=== PATIENT | female | born 1955 | race Caucasian/White ===

== ENCOUNTER 2016-11-04 07:58 | Day surgery (SDC) | payer MEDICARE, MEDICAID ==
[~2016-11-04] VITALS: Ht 152.4 cm; Wt 52.6 kg
[2016-11-04] MEDS ORDERED: CLON0.2T PO (09:11)
[2016-11-04] MEDS ORDERED: CELL2 PO (09:11)
[2016-11-04] MEDS ORDERED: INSNOV SUBCUT (09:11)
[2016-11-04] MEDS ORDERED: VALS40TA4 PO (09:11)
[2016-11-04] MEDS ORDERED: CLOP75TA2 PO (09:11)
[2016-11-04] MEDS ORDERED: CALC-1232 PO (09:11)
[2016-11-04] MEDS ORDERED: FAMO40TA35 PO (09:11)
[2016-11-04] MEDS ORDERED: INSU100I22 SQ (09:11)
[2016-11-04] MEDS ORDERED: NITR0.4T SL (09:11)
[2016-11-04] MEDS ORDERED: PRED5TAB48 PO (09:11)
[2016-11-04] MEDS ORDERED: PROG1 PO (09:11)
[2016-11-04] MEDS ORDERED: SIMV40TA5 PO (09:11)
[2016-11-04] MEDS ORDERED: ACETAMINOPHEN 325MG TABLET PO NR (16:30)
[2016-11-04] MEDS ORDERED: HYDROCODONE/ACETAMINOPHEN 5/325MG TABLET PO PRN (16:30)
== END 2016-11-04 18:02 | disposition home or self-care (01) ==
LOC: CCL 07:58
PROVIDERS: ATTEND Specialist
DX: I70.239 Atherosclerosis of native arteries of right leg with ulceration of unspecified site (principal); I11.9 Hypertensive heart disease without heart failure; E78.5 Hyperlipidemia, unspecified; E11.39 Type 2 diabetes mellitus with other diabetic ophthalmic complication; H40.9 Unspecified glaucoma; Z90.49 Acquired absence of other specified parts of digestive tract; Z90.710 Acquired absence of both cervix and uterus; Z79.4 Long term (current) use of insulin; Z88.8 Allergy status to other drugs, medicaments and biological substances; Z94.0 Kidney transplant status
CPT/HCPCS: 36246; 75716; 82962; 99152; 99153; C1760; C1769; C1893

== ENCOUNTER → 2018-07-14 | Outpatient (CLI) | payer MEDICARE, MEDICAID ==
[~2018-07-14] MED LIST: ACET-2178 PO; ASPI-1159 PO; CALC-1232 PO; CELL2 PO; CLON0.2T PO; CLOP75TA16 PO; FAMO40TA70 PO; INSNOV SUBCUT; INSU100I22 SQ; NITR0.4T SL; ONDA4TAB5 PO; PRED5TAB48 PO; PROG1 PO; PROT20 PO; SIMV40TA5 PO; VALS40TA4 PO
== END | disposition home or self-care (01) ==
LOC: RAD 12:37
DX: Z01.818 Encounter for other preprocedural examination (principal); I10 Essential (primary) hypertension; Z94.0 Kidney transplant status
CPT/HCPCS: 71045

== ENCOUNTER → 2019-09-29 | Outpatient (CLI) | payer MEDICARE, MEDICAID ==
[~2019-09-29] MED LIST changes: -ACET-2178 PO; -ASPI-1159 PO; +ASPI-1497 PO; +BRIN8DRO BOTHEYE; +CALC-25 PO; +CHOL500063 PO; -CLOP75TA16 PO; +CLOP75TA4 PO; +DOCU-150 PO; +GABA-533 PO; +HYDR10TA34 PO; +INSU100I33 SQ; +INSU100V36 SQ; +LOSA25TA26 PO; +METH50TA5 PO; +PANT40TA4 PO; +PRAV40TA58 PO; +PRED5DRO22 BOTHEYE; +PRED5TAB PO; +RISP05 PO; +SERT50TA12 PO; +SIMV-46 PO; -SIMV40TA5 PO; +SITA50TA3 PO; +TACR0.5C4 PO; +TOBRDO OP; +TOPUD PO; +TRAV2.5D OP
== END | disposition home or self-care (01) ==
LOC: LAB 12:45
PROVIDERS: ATTEND Ophthalmology
DX: Z01.818 Encounter for other preprocedural examination (principal); Z11.59 Encounter for screening for other viral diseases
CPT/HCPCS: C9803; U0003

== ENCOUNTER 2019-10-03 06:21 | Day surgery (SDC) | payer MEDICARE, MEDICAID ==
[~2019-10-03] VITALS: Ht 152.4 cm; Wt 54.4 kg
[~2019-10-03 06:21] MED LIST changes: -ASPI-1497 PO; -CALC-1232 PO; -CELL2 PO; -CLON0.2T PO; -FAMO40TA70 PO; -INSNOV SUBCUT; -INSU100I22 SQ; -NITR0.4T SL; -ONDA4TAB5 PO; -PRED5TAB48 PO; -PROG1 PO; -PROT20 PO; -SIMV-46 PO; -TOPUD PO; -VALS40TA4 PO
[2019-10-03] MEDS ORDERED: SODIUM CHLORIDE 0.9% 1,000 ML IV SCH (06:30)
[2019-10-03] MEDS ORDERED: PROPOFOL 200MG/20ML VIAL IV ONE (08:30)
[2019-10-03] MEDS ORDERED: MIDAZOLAM HCL 2 MG/2 ML VIAL ONE (08:30)
[2019-10-03] MEDS ORDERED: FENTANYL CITRATE/PF 50MCG/ML 2ML VIAL ONE (08:30)
[2019-10-03] MEDS ORDERED: LIDOCAINE HCL/PF 1% 10 MG/ML 5ML VIAL ONE (08:32)
[2019-10-03] MEDS ORDERED: HYALURONATE SODIUM 10 MG/ML 0.55ML SYRINGE IO ONE (09:10)
[2019-10-03] MEDS ORDERED: BALANCED SALT IRRIG SOLN COMB1 500ML OP NR (09:30)
[2019-10-03] MEDS ORDERED: LIDOCAINE HCL 2%/EPINEPHRINE 1:100,000 20 ML VIAL INFIL ONE (14:07)
[2019-10-03] MEDS ORDERED: BALANCED SALT IRRIG SOLN 15ML ONE (14:07)
[2019-10-03] MEDS ORDERED: CIPROFLOXACIN 0.3% OPHTH SOLN 2.5ML ONE (14:07)
[2019-10-03] MEDS ORDERED: BUPIVACAINE HCL/PF 0.75% (7.5MG/ML) 10ML ONE (14:07)
[2019-10-03] MEDS ORDERED: TETRACAINE 0.5% OPHTH DROPS 4ML ONE (14:07)
[2019-10-03] MEDS ORDERED: LIDOCAINE HCL/PF 2% 20 MG/ML 10ML VIAL ONE (14:07)
[2019-10-03] MEDS ORDERED: PREDNISOLONE ACETATE 1% OPHTH DROPS 5ML ONE (14:07)
== END 2019-10-03 11:10 | disposition home or self-care (01) ==
LOC: OR 06:21
PROVIDERS: ATTEND Ophthalmology
DX: T85.398A Other mechanical complication of other ocular prosthetic devices, implants and grafts, initial encounter (principal); E11.39 Type 2 diabetes mellitus with other diabetic ophthalmic complication; H40.89 Other specified glaucoma; E11.65 Type 2 diabetes mellitus with hyperglycemia; I10 Essential (primary) hypertension; E78.00 Pure hypercholesterolemia, unspecified; Z94.0 Kidney transplant status; Z79.84 Long term (current) use of oral hypoglycemic drugs; Z79.899 Other long term (current) drug therapy; Z98.890 Other specified postprocedural states; Z79.4 Long term (current) use of insulin; Z83.3 Family history of diabetes mellitus; Z82.49 Family history of ischemic heart disease and other diseases of the circulatory system
CPT/HCPCS: 66185; 82962; J2250; J2704; J3010; J3490

== ENCOUNTER 2020-12-30 11:36 | Inpatient (IN) | payer MEDICARE, MEDICAID ==
[~2020-12-30] VITALS: Ht 152.4 cm; Wt 55.8 kg
[~2020-12-30 11:36] MED LIST changes: -CALC-25 PO; +CALC-26 PO; +CLOP-31 PO; -CLOP75TA4 PO; -PANT40TA4 PO; +PANT40TA51 PO; +SERT-422 PO; -SERT50TA12 PO; -TRAV2.5D OP; +TRAV2.5D9 OP
[2020-12-30] MEDS ORDERED: PIPERACILLIN/TAZ 3.375G PREMIX 50 ML IV ONE (14:00)
[2020-12-30] MEDS ORDERED: VANCOMYCIN 1 G PREMIX 200 ML IV ONE (14:00)
[2020-12-30 14:41] LABS: BASOPHILS % 0.7 % (0.0-2.0); EOSINOPHILS % 0.6 % (0.0-5.0); HEMATOCRIT. 36.4 % (36.0-48.0); HEMOGLOBIN. 11.4 g/dL (12.0-16.0); LYMPHOCYTES % 10.4 % (20.0-50.0); MEAN CORPUSCULAR HEMOGLOBIN 26.4 pg (28.0-32.0); MEAN CORPUSCULAR VOLUME 84.2 fL (81.0-99.0); MONOCYTES % 7.4 % (2.0-8.0); NEUTROPHILS % 80.9 % (40.0-76.0); PLATELET 319 x1000/uL (130-400); RED BLOOD CELL COUNT 4.32 mill/uL (4.2-5.4); RED CELL DISTRIBUTION WIDTH 16.5 % (11.6-14.6)
[2020-12-30 14:47] LABS: CHLORIDE 99 mEq/L (98-107)
[2020-12-30 14:53] LABS: INR 1.1; PROTHROMBIN TIME 11.6 sec (9.6-11.0)
[2020-12-30] MEDS ORDERED: DOCUSATE SODIUM 100MG CAPSULE PO PRN (18:45)
[2020-12-30] MEDS ORDERED: ONDANSETRON HCL 4MG/2ML INJ IV PRN (18:45)
[2020-12-30] MEDS ORDERED: VANCOMYCIN 1 G PREMIX 200 ML IV SCH (18:45)
[2020-12-30] MEDS ORDERED: DEXTROSE 50% WATER 50ML SYRINGE IV PRN (18:45)
[2020-12-30] MEDS ORDERED: HYDROCODONE/ACETAMINOPHEN 10/325MG TABLET PO PRN (18:45)
[2020-12-30] MEDS ORDERED: ZOLPIDEM TARTRATE 5MG TABLET PO PRN (18:45)
[2020-12-30] MEDS ORDERED: VANCOMYCIN 500 MG PREMIX 100 ML IV NR (20:00)
[2020-12-30] MEDS: BLOOD SUGAR DIAGNOSTIC STRIP TEST SCH (21:00)
[2020-12-30] MEDS: TACROLIMUS 0.5 MG CAPSULE PO SCH (21:38)
[2020-12-30] MEDS: MYCOPHENOLATE MOFETIL 250MG CAPSULE PO SCH (21:39)
[2020-12-30] MEDS ORDERED: INSULIN GLARGINE UD 100 UNITS/ML SYR SUBCUT SCH (22:00)
[2020-12-30] MEDS: FAMOTIDINE 20MG TABLET PO SCH (22:20)
[2020-12-30] MEDS: INSULIN LISPRO 100 UNITS/ML SUBCUT SCH (22:30)
[2020-12-30] MEDS: SODIUM CHLORIDE 0.9% INJ 3ML FLUSH IVF SCH (22:32)
[2020-12-31] VITALS: BP 155/54
[2020-12-31] MEDS: ATORVASTATIN CALCIUM 20MG TABLET PO SCH ×2 (00:35→20:46)
[2020-12-31 04:00] VITALS: BP 151/70
[2020-12-31] MEDS: BLOOD SUGAR DIAGNOSTIC STRIP TEST SCH ×4 (06:40→20:47)
[2020-12-31] MEDS: INSULIN LISPRO 100 UNITS/ML SUBCUT SCH ×4 (06:41→20:47)
[2020-12-31] MEDS: PREDNISONE 5MG TABLET PO SCH (06:41)
[2020-12-31] MEDS: SODIUM CHLORIDE 0.9% INJ 3ML FLUSH IVF SCH ×3 (06:42→22:57)
[2020-12-31 08:00] VITALS: BP 144/57
[2020-12-31] MEDS ORDERED: PNEUMOCOCCAL 23-VAL P-SAC VAC 0.5 ML IM ONE (08:00)
[2020-12-31] MEDS: MYCOPHENOLATE MOFETIL 250MG CAPSULE PO SCH ×2 (09:54→20:46)
[2020-12-31] MEDS: TACROLIMUS 0.5 MG CAPSULE PO SCH ×2 (09:54→17:08)
[2020-12-31] MEDS: LOSARTAN POTASSIUM 25 MG TABLET PO SCH (09:54)
[2020-12-31] MEDS: VANCOMYCIN 750 MG PREMIX 150 ML IV SCH ×2 (09:55→20:46)
[2020-12-31] MEDS ORDERED: INFLUENZA VACCINE 05/PF 0.5 ML SYRINGE IM ONE (10:00)
[2020-12-31 12:00] VITALS: BP 134/50
[2020-12-31 16:00] VITALS: BP 150/54
[2020-12-31] MEDS ORDERED: LIDOCAINE HCL 1% 20ML VIAL (Pyxis) INJ ONE (16:36)
[2020-12-31] MEDS ORDERED: BUPIVACAINE HCL/PF 0.5% (5MG/ML) 10ML ONE (16:36)
[2020-12-31] MEDS ORDERED: POLYMYXIN B SULFATE 500000 UNITS/VIAL ONE (16:36)
[2020-12-31 20:00] VITALS: BP 147/61
[2020-12-31] MEDS: FAMOTIDINE 20MG TABLET PO SCH (20:46)
[2020-12-31] MEDS: HYDROMORPHONE HCL/PF 2MG/ML CPJ IV PRN (22:03)
[2020-12-31] MEDS: INSULIN GLARGINE UD 100 UNITS/ML SYR SUBCUT SCH (22:57)
[2021-01-01] VITALS (9 sets, daily range): BP systolic 78–146; BP diastolic 32–72
[2021-01-01] MEDS: HYDROMORPHONE HCL/PF 2MG/ML CPJ IV PRN ×2 (04:35→17:23)
[2021-01-01] MEDS: SODIUM CHLORIDE 0.9% INJ 3ML FLUSH IVF SCH ×3 (06:00→21:27)
[2021-01-01] MEDS: INSULIN LISPRO 100 UNITS/ML SUBCUT SCH ×4 (06:52→21:28)
[2021-01-01] MEDS: PREDNISONE 5MG TABLET PO SCH (06:52)
[2021-01-01] MEDS: BLOOD SUGAR DIAGNOSTIC STRIP TEST SCH ×4 (07:37→20:22)
[2021-01-01] MEDS: LOSARTAN POTASSIUM 25 MG TABLET PO SCH (09:00)
[2021-01-01] MEDS: MYCOPHENOLATE MOFETIL 250MG CAPSULE PO SCH ×2 (09:25→21:26)
[2021-01-01] MEDS: TACROLIMUS 0.5 MG CAPSULE PO SCH ×2 (09:25→17:21)
[2021-01-01] MEDS: SODIUM CHLORIDE 0.45% 1,000 ML IV SCH ×2 (09:26→21:27)
[2021-01-01] MEDS ORDERED: HEPARIN 1000 UNITS/ML 10ML ONE (09:35)
[2021-01-01] MEDS ORDERED: LIDOCAINE HCL 1% 20ML VIAL (Pyxis) INJ ONE (09:35)
[2021-01-01] MEDS ORDERED: IOHEXOL-300 100 ML BOTTLE ONE (09:36)
[2021-01-01] MEDS ORDERED: IODIXANOL 320MG/ML 100 ML BOTTLE IV ONE (09:36)
[2021-01-01] MEDS ORDERED: MIDAZOLAM HCL 2 MG/2 ML VIAL ONE (10:17)
[2021-01-01] MEDS ORDERED: FENTANYL CITRATE/PF 50MCG/ML 2ML VIAL ONE (10:17)
[2021-01-01] MEDS ORDERED: ONDANSETRON HCL 4MG/2ML INJ IV PRN (11:15)
[2021-01-01] MEDS ORDERED: ATROPINE SULFATE 1MG/10ML SYR IV PRN (11:15)
[2021-01-01] MEDS ORDERED: FENTANYL CITRATE/PF 50MCG/ML 5ML VIAL ONE (11:20)
[2021-01-01] MEDS ORDERED: MIDAZOLAM HCL 5 MG/5 ML VIAL ONE (11:21)
[2021-01-01] MEDS: ATORVASTATIN CALCIUM 20MG TABLET PO SCH (21:26)
[2021-01-01] MEDS: FAMOTIDINE 20MG TABLET PO SCH (21:27)
[2021-01-01] MEDS: VANCOMYCIN 750 MG PREMIX 150 ML IV SCH (21:27)
[2021-01-01] MEDS: INSULIN GLARGINE UD 100 UNITS/ML SYR SUBCUT SCH (21:29)
[2021-01-02] VITALS: BP 115/57
[2021-01-02] MEDS: HYDROMORPHONE HCL/PF 2MG/ML CPJ IV PRN ×2 (01:14→08:36)
[2021-01-02 04:00] VITALS: BP 136/60
[2021-01-02] MEDS: BLOOD SUGAR DIAGNOSTIC STRIP TEST SCH ×4 (06:09→20:20)
[2021-01-02] MEDS: INSULIN LISPRO 100 UNITS/ML SUBCUT SCH ×4 (06:10→21:04)
[2021-01-02] MEDS: PREDNISONE 5MG TABLET PO SCH (06:21)
[2021-01-02] MEDS: SODIUM CHLORIDE 0.9% INJ 3ML FLUSH IVF SCH ×3 (06:22→21:04)
[2021-01-02 07:21] LABS: BASOPHILS % 0.9 % (0.0-2.0); EOSINOPHILS % 1.7 % (0.0-5.0); HEMATOCRIT. 39.8 % (36.0-48.0); MEAN CORPUSCULAR HEMOGLOBIN 26.5 pg (28.0-32.0); MEAN CORPUSCULAR VOLUME 87.6 fL (81.0-99.0); MEAN PLATELET VOLUME 9.7 fl (7.4-10.4); MONOCYTES % 9.3 % (2.0-8.0); NEUTROPHILS % 70.1 % (40.0-76.0); PLATELET 163 x1000/uL (130-400); RED BLOOD CELL COUNT 4.54 mill/uL (4.2-5.4); RED CELL DISTRIBUTION WIDTH 16.9 % (11.6-14.6)
[2021-01-02 08:09] VITALS: BP 133/56
[2021-01-02] MEDS: TACROLIMUS 0.5 MG CAPSULE PO SCH ×2 (08:24→17:00)
[2021-01-02] MEDS: LOSARTAN POTASSIUM 25 MG TABLET PO SCH (08:24)
[2021-01-02] MEDS: MYCOPHENOLATE MOFETIL 250MG CAPSULE PO SCH ×2 (08:24→21:02)
[2021-01-02 08:30] LABS: CHLORIDE 98 mEq/L (98-107)
[2021-01-02 12:00] VITALS: BP 113/70
[2021-01-02] MEDS: SODIUM CHLORIDE 0.45% 1,000 ML IV SCH (13:12)
[2021-01-02] MEDS ORDERED: BUPIVACAINE HCL/PF 0.5% (5MG/ML) 10ML ONE (14:30)
[2021-01-02] MEDS ORDERED: POLYMYXIN B SULFATE 500000 UNITS/VIAL ONE ×2 (14:30→16:34)
[2021-01-02] MEDS ORDERED: LIDOCAINE HCL 1% 20ML VIAL (Pyxis) INJ ONE (14:30)
[2021-01-02] MEDS ORDERED: VANCOMYCIN HCL 1 GM/VIAL ONE (14:30)
[2021-01-02] MEDS ORDERED: FENTANYL CITRATE/PF 50MCG/ML 2ML VIAL ONE (16:04)
[2021-01-02] MEDS ORDERED: MIDAZOLAM HCL 2 MG/2 ML VIAL ONE (16:04)
[2021-01-02] MEDS ORDERED: PROPOFOL 200MG/20ML VIAL IV ONE (16:04)
[2021-01-02] MEDS ORDERED: ONDANSETRON HCL 4MG/2ML INJ IV PRN (16:15)
[2021-01-02] MEDS ORDERED: HYDROMORPHONE HCL/PF 2MG/ML CPJ IV PRN (16:15)
[2021-01-02] MEDS ORDERED: LABETALOL 5MG/ML SYR 20 MG/4 ML SYRINGE IV PRN (16:15)
[2021-01-02] MEDS ORDERED: MEPERIDINE HCL/PF 25MG/ML CPJ IV PRN (16:15)
[2021-01-02] MEDS ORDERED: GENTAMICIN SULF 40MG/ML 2ML VIAL ONE (16:34)
[2021-01-02] MEDS ORDERED: BACITRACIN 15GM TUBE TOP ONE (16:34)
[2021-01-02] MEDS ORDERED: ONDANSETRON HCL 4MG/2ML INJ ONE (16:50)
[2021-01-02] MEDS ORDERED: DEXAMETHASONE 4MG/ML 1ML VIAL ONE (16:50)
[2021-01-02 20:00] VITALS: BP 119/83
[2021-01-02] MEDS: VANCOMYCIN 750 MG PREMIX 150 ML IV SCH (21:01)
[2021-01-02] MEDS: FAMOTIDINE 20MG TABLET PO SCH (21:02)
[2021-01-02] MEDS: ATORVASTATIN CALCIUM 20MG TABLET PO SCH (21:02)
[2021-01-02] MEDS: INSULIN GLARGINE UD 100 UNITS/ML SYR SUBCUT SCH (21:41)
[2021-01-03] VITALS: BP 176/76
[2021-01-03] MEDS: CLONIDINE 0.1MG TABLET PO PRN (00:11)
[2021-01-03] MEDS: HYDROMORPHONE HCL/PF 2MG/ML CPJ IV PRN ×2 (00:12→08:38)
[2021-01-03] MEDS: SODIUM CHLORIDE 0.45% 1,000 ML IV SCH ×2 (00:20→14:48)
[2021-01-03 04:00] VITALS: BP 146/60
[2021-01-03] MEDS: SODIUM CHLORIDE 0.9% INJ 3ML FLUSH IVF SCH ×3 (05:29→21:38)
[2021-01-03] MEDS: BLOOD SUGAR DIAGNOSTIC STRIP TEST SCH ×4 (05:55→20:03)
[2021-01-03] MEDS: PREDNISONE 5MG TABLET PO SCH (06:25)
[2021-01-03] MEDS: INSULIN LISPRO 100 UNITS/ML SUBCUT SCH ×4 (06:26→20:55)
[2021-01-03 07:11] LABS: BASOPHILS % 0.4 % (0.0-2.0); EOSINOPHILS % 1.8 % (0.0-5.0); HEMATOCRIT. 32.3 % (36.0-48.0); HEMOGLOBIN. 10.5 g/dL (12.0-16.0); LYMPHOCYTES % 14.4 % (20.0-50.0); MEAN CORPUSCULAR HEMOGLOBIN 26.7 pg (28.0-32.0); MEAN CORPUSCULAR VOLUME 82.2 fL (81.0-99.0); MEAN PLATELET VOLUME 8.6 fl (7.4-10.4); MONOCYTES % 8.9 % (2.0-8.0); NEUTROPHILS % 74.5 % (40.0-76.0); PLATELET 287 x1000/uL (130-400); RED BLOOD CELL COUNT 3.93 mill/uL (4.2-5.4); RED CELL DISTRIBUTION WIDTH 16.1 % (11.6-14.6)
[2021-01-03 07:22] LABS: CHLORIDE 101 mEq/L (98-107)
[2021-01-03 08:00] VITALS: BP_SYST 128; BP_SYST 161; BP_DIAS 54; BP_DIAS 93
[2021-01-03] MEDS: MYCOPHENOLATE MOFETIL 250MG CAPSULE PO SCH ×2 (08:25→20:53)
[2021-01-03] MEDS: LOSARTAN POTASSIUM 25 MG TABLET PO SCH (08:25)
[2021-01-03] MEDS: TACROLIMUS 0.5 MG CAPSULE PO SCH ×2 (08:25→18:21)
[2021-01-03] MEDS: ACETAMINOPHEN 325MG TABLET PO PRN ×2 (11:40→18:41)
[2021-01-03 12:00] VITALS: BP 156/72
[2021-01-03 16:00] VITALS: BP 140/71
[2021-01-03] MEDS ORDERED: CEFTRIAXONE 1 G PREMIX 50 ML IV SCH (19:15)
[2021-01-03 20:00] VITALS: BP 148/56
[2021-01-03] MEDS: CEFTRIAXONE 1,000 MG in DEXTROSE 5% WATER 50 ML IV SCH (20:53)
[2021-01-03] MEDS: ATORVASTATIN CALCIUM 20MG TABLET PO SCH (20:53)
[2021-01-03] MEDS: FAMOTIDINE 20MG TABLET PO SCH (20:53)
[2021-01-03] MEDS: INSULIN GLARGINE UD 100 UNITS/ML SYR SUBCUT SCH (21:45)
[2021-01-04] VITALS: BP 190/66
[2021-01-04] MEDS: CLONIDINE 0.1MG TABLET PO PRN (00:20)
[2021-01-04 04:00] VITALS: BP 149/64
[2021-01-04] MEDS: SODIUM CHLORIDE 0.9% INJ 3ML FLUSH IVF SCH ×3 (05:54→23:29)
[2021-01-04] MEDS: BLOOD SUGAR DIAGNOSTIC STRIP TEST SCH ×4 (06:03→21:07)
[2021-01-04] MEDS: INSULIN LISPRO 100 UNITS/ML SUBCUT SCH ×4 (06:21→21:34)
[2021-01-04 06:26] LABS: CHLORIDE 104 mEq/L (98-107)
[2021-01-04 06:28] LABS: BASOPHILS % 0.3 % (0.0-2.0); HEMATOCRIT. 33.1 % (36.0-48.0); HEMOGLOBIN. 10.8 g/dL (12.0-16.0); LYMPHOCYTES % 11.4 % (20.0-50.0); MEAN CORPUSCULAR HEMOGLOBIN 26.7 pg (28.0-32.0); MEAN CORPUSCULAR VOLUME 81.6 fL (81.0-99.0); MEAN PLATELET VOLUME 8.8 fl (7.4-10.4); MONOCYTES % 6.7 % (2.0-8.0); NEUTROPHILS % 80.6 % (40.0-76.0); PLATELET 303 x1000/uL (130-400); RED BLOOD CELL COUNT 4.05 mill/uL (4.2-5.4); RED CELL DISTRIBUTION WIDTH 16.4 % (11.6-14.6)
[2021-01-04] MEDS: PREDNISONE 5MG TABLET PO SCH (06:45)
[2021-01-04 08:00] VITALS: BP 155/54
[2021-01-04] MEDS: TACROLIMUS 0.5 MG CAPSULE PO SCH ×2 (08:50→17:42)
[2021-01-04] MEDS: MYCOPHENOLATE MOFETIL 250MG CAPSULE PO SCH ×2 (08:50→21:31)
[2021-01-04] MEDS: LOSARTAN POTASSIUM 25 MG TABLET PO SCH ×3 (08:50→21:00)
[2021-01-04 12:00] VITALS: BP 166/50
[2021-01-04] MEDS ORDERED: MAGNESIUM HYDROXIDE 400MG/5ML 30ML UDC PO NR (14:30)
[2021-01-04 16:00] VITALS: BP 146/54
[2021-01-04] MEDS: MAGNESIUM/ALUMINUM HYDROXIDE/SIMETHICONE 30ML UDC PO PRN ×2 (16:08→16:09)
[2021-01-04] MEDS: AMLODIPINE 2.5MG TABLET PO SCH (16:09)
[2021-01-04] MEDS: HYDROMORPHONE HCL/PF 2MG/ML CPJ IV PRN ×2 (19:06→23:29)
[2021-01-04 20:00] VITALS: BP 121/42
[2021-01-04] MEDS: FAMOTIDINE 20MG TABLET PO SCH (21:31)
[2021-01-04] MEDS: CEFTRIAXONE 1,000 MG in DEXTROSE 5% WATER 50 ML IV SCH (21:32)
[2021-01-04] MEDS: ATORVASTATIN CALCIUM 20MG TABLET PO SCH (21:32)
[2021-01-04] MEDS: METRONIDAZOLE 500MG TABLET PO SCH (21:32)
[2021-01-04] MEDS: INSULIN GLARGINE UD 100 UNITS/ML SYR SUBCUT SCH (21:35)
[2021-01-05 01:06] VITALS: BP 104/39
[2021-01-05] MEDS: ACETAMINOPHEN 325MG TABLET PO PRN (02:45)
[2021-01-05 04:00] VITALS: BP 94/50
[2021-01-05] MEDS: BLOOD SUGAR DIAGNOSTIC STRIP TEST SCH ×3 (06:18→16:40)
[2021-01-05] MEDS: PREDNISONE 5MG TABLET PO SCH (06:18)
[2021-01-05] MEDS: SODIUM CHLORIDE 0.9% INJ 3ML FLUSH IVF SCH ×2 (06:18→13:06)
[2021-01-05] MEDS: INSULIN LISPRO 100 UNITS/ML SUBCUT SCH ×2 (07:10→12:02)
[2021-01-05 07:57] LABS: BASOPHILS % 0.4 % (0.0-2.0); EOSINOPHILS % 1.4 % (0.0-5.0); HEMATOCRIT. 31.7 % (36.0-48.0); HEMOGLOBIN. 10.2 g/dL (12.0-16.0); LYMPHOCYTES % 15.4 % (20.0-50.0); MEAN CORPUSCULAR HEMOGLOBIN 26.4 pg (28.0-32.0); MEAN CORPUSCULAR VOLUME 82.3 fL (81.0-99.0); MEAN PLATELET VOLUME 8.5 fl (7.4-10.4); MONOCYTES % 8.1 % (2.0-8.0); NEUTROPHILS % 74.7 % (40.0-76.0); PLATELET 292 x1000/uL (130-400); RED BLOOD CELL COUNT 3.85 mill/uL (4.2-5.4); RED CELL DISTRIBUTION WIDTH 16.4 % (11.6-14.6)
[2021-01-05 08:00] VITALS: BP 101/41
[2021-01-05 08:00] LABS: CHLORIDE 99 mEq/L (98-107)
[2021-01-05] MEDS: AMLODIPINE 2.5MG TABLET PO SCH (08:24)
[2021-01-05] MEDS: LOSARTAN POTASSIUM 25 MG TABLET PO SCH (08:24)
[2021-01-05] MEDS: TACROLIMUS 0.5 MG CAPSULE PO SCH (08:38)
[2021-01-05] MEDS: MYCOPHENOLATE MOFETIL 250MG CAPSULE PO SCH (08:38)
[2021-01-05] MEDS: METRONIDAZOLE 500MG TABLET PO SCH (08:38)
[2021-01-05] MEDS: MAGNESIUM/ALUMINUM HYDROXIDE/SIMETHICONE 30ML UDC PO PRN (11:48)
[2021-01-05] MEDS: HYDROMORPHONE HCL/PF 2MG/ML CPJ IV PRN (11:48)
[2021-01-05 12:00] VITALS: BP 136/56
[2021-01-05] MEDS ORDERED: CEFTRIAXONE 1 G PREMIX 50 ML IV ONE (14:15)
[2021-01-05] MEDS: CEFTRIAXONE 1,000 MG in DEXTROSE 5% WATER 50 ML IV SCH (14:25)
[2021-01-05] MEDS ORDERED: CEFTRIAXONE 1,000 MG in DEXTROSE 5% WATER 50 ML IV SCH (14:45)
[2021-01-05 15:15] VITALS: BP 136/56
[2021-01-05 16:00] VITALS: BP 146/48
== END 2021-01-05 16:37 | disposition home health service (06) | DRG 579 ==
LOC: ER 11:36 → 7EST 16:44 → EDBEDREQSVC 16:47 → CANRESERV 19:13 → ENRESERV 19:13 → EDBEDREQSVC 19:46 → EDBEDREQTM 19:46 → ENRESERV 21:59
PROVIDERS: ADMIT Internal Medicine; ATTEND Internal Medicine
PROC: B41GYZZ Fluoroscopy of Left Lower Extremity Arteries using Other Contrast (ICD-10-PCS; principal; 2021-01-01)
PROC: 0Y6S0Z0 Detachment at Left 2nd Toe, Complete, Open Approach (ICD-10-PCS; 2021-01-02)
PROC: 0HDNXZZ Extraction of Left Foot Skin, External Approach (ICD-10-PCS; 2021-01-02)
PROC: 0M9 Bursae and Ligaments, Drainage (ICD-10-PCS; 2021-01-02)
PROC: 02HV33Z Insertion of Infusion Device into Superior Vena Cava, Percutaneous Approach (ICD-10-PCS; 2021-01-04)
PROC: B548ZZA Ultrasonography of Superior Vena Cava, Guidance (ICD-10-PCS; 2021-01-04)
DX: L02.612 Cutaneous abscess of left foot (principal); N18.6 End stage renal disease; E11.52 Type 2 diabetes mellitus with diabetic peripheral angiopathy with gangrene; I70.262 Atherosclerosis of native arteries of extremities with gangrene, left leg; D84.9 Immunodeficiency, unspecified; I12.0 Hypertensive chronic kidney disease with stage 5 chronic kidney disease or end stage renal disease; D63.8 Anemia in other chronic diseases classified elsewhere; E11.22 Type 2 diabetes mellitus with diabetic chronic kidney disease; E11.319 Type 2 diabetes mellitus with unspecified diabetic retinopathy without macular edema; E11.40 Type 2 diabetes mellitus with diabetic neuropathy, unspecified; E78.00 Pure hypercholesterolemia, unspecified; E78.5 Hyperlipidemia, unspecified; I25.10 Atherosclerotic heart disease of native coronary artery without angina pectoris; E11.21 Type 2 diabetes mellitus with diabetic nephropathy; Z20.822 Contact with and (suspected) exposure to COVID-19; L97.529 Non-pressure chronic ulcer of other part of left foot with unspecified severity; Z79.4 Long term (current) use of insulin; Z90.710 Acquired absence of both cervix and uterus; Z95.5 Presence of coronary angioplasty implant and graft; Z88.6 Allergy status to analgesic agent; Z88.5 Allergy status to narcotic agent; Z79.899 Other long term (current) drug therapy
CPT/HCPCS: 36246; 36415; 71045; 73630; 75710; 76937; 80048; 80053; 80202; 82962; 83036; 83735; 85025; 85651; 86140; 87070; 87075; 87077; 87186; 87426; 88305; 88311; 90686; 93005; 93306; 93923; 99285; C1725; C1760; C1769; C1893; J0696; J1100; J1170; J1580; J1644; J1815; J2250; J2405; J2543; J2704; J3010; J3370; J3490; J7060; J7507; J7512; J7517; Q9967

== ENCOUNTER 2021-01-14 06:26 | Inpatient (IN) | payer MEDICARE, MEDICAID ==
[~2021-01-14] VITALS: Ht 152.4 cm; Wt 68.0 kg
[~2021-01-14 06:26] MED LIST changes: -CLOP-31 PO; -DOCU-150 PO; -HYDR10TA34 PO; -METH50TA5 PO; -SITA50TA3 PO; -TRAV2.5D9 OP
[2021-01-14] MEDS ORDERED: PIPERACILLIN/TAZ 3.375G PREMIX 50 ML IV ONE (10:15)
[2021-01-14] MEDS ORDERED: VANCOMYCIN 1 G PREMIX 200 ML IV ONE (10:15)
[2021-01-14 10:24] LABS: BASOPHILS % 0.8 % (0.0-2.0); CHLORIDE 94 mEq/L (98-107); EOSINOPHILS % 1.2 % (0.0-5.0); HEMATOCRIT. 34.2 % (36.0-48.0); HEMOGLOBIN. 10.3 g/dL (12.0-16.0); LYMPHOCYTES % 17.1 % (20.0-50.0); MEAN CORPUSCULAR HEMOGLOBIN 26.6 pg (28.0-32.0); MEAN CORPUSCULAR VOLUME 87.9 fL (81.0-99.0); MEAN PLATELET VOLUME 9.4 fl (7.4-10.4); MONOCYTES % 9.2 % (2.0-8.0); NEUTROPHILS % 71.7 % (40.0-76.0); PLATELET 298 x1000/uL (130-400); RED BLOOD CELL COUNT 3.89 mill/uL (4.2-5.4)
[2021-01-14 10:25] LABS: PROTHROMBIN TIME 10.9 sec (9.6-11.0)
[2021-01-14] MEDS ORDERED: SODIUM CHLORIDE 0.9% 1,000 ML IV ONE (11:00)
[2021-01-14] MEDS ORDERED: INSULIN REGULAR (HUMULIN R) 300UNITS/3ML VIAL IV ONE (11:30)
[2021-01-14] MEDS ORDERED: ONDANSETRON HCL 4MG/2ML INJ IV PRN (11:45)
[2021-01-14] MEDS ORDERED: DEXTROSE 50% WATER 50ML SYRINGE IV PRN (11:45)
[2021-01-14] MEDS ORDERED: CLONIDINE 0.1MG TABLET PO PRN (11:45)
[2021-01-14] MEDS ORDERED: DIPHENHYDRAMINE 50MG/ML VIAL IV PRN (11:45)
[2021-01-14] MEDS ORDERED: MAGNESIUM/ALUMINUM HYDROXIDE/SIMETHICONE 30ML UDC PO PRN (11:45)
[2021-01-14] MEDS: SODIUM CHLORIDE 0.9% 1,000 ML IV SCH ×2 (13:00→22:36)
[2021-01-14] MEDS: BLOOD SUGAR DIAGNOSTIC STRIP TEST SCH ×3 (14:30→21:09)
[2021-01-14] MEDS: PREDNISOLONE ACETATE 1% OPHTH DROPS 5ML BOTHEYE SCH ×2 (15:11→20:39)
[2021-01-14] MEDS: SODIUM CHLORIDE 0.9% INJ 3ML FLUSH IVF SCH ×2 (15:12→22:00)
[2021-01-14] MEDS: INSULIN LISPRO 100 UNITS/ML SUBCUT SCH ×3 (16:24→20:50)
[2021-01-14] MEDS ORDERED: INSULIN REGULAR (HUMULIN R) 300UNITS/3ML VIAL IV NR (16:30)
[2021-01-14] MEDS: RISPERIDONE 0.5MG TABLET PO SCH (18:07)
[2021-01-14] MEDS: TACROLIMUS 0.5 MG CAPSULE PO SCH (18:08)
[2021-01-14] MEDS: SERTRALINE HCL 50MG TABLET PO SCH (18:08)
[2021-01-14] MEDS: ATORVASTATIN CALCIUM 20MG TABLET PO SCH (20:39)
[2021-01-14] MEDS: MYCOPHENOLATE MOFETIL 250MG CAPSULE PO SCH (20:40)
[2021-01-14] MEDS ORDERED: INSULIN GLARGINE UD 100 UNITS/ML SYR SUBCUT SCH (22:00)
[2021-01-14 23:15] VITALS: BP 126/71
[2021-01-14 23:30] VITALS: BP 126/71
[2021-01-15] MEDS: SODIUM CHLORIDE 0.9% INJ 3ML FLUSH IVF SCH ×3 (06:19→20:49)
[2021-01-15] MEDS: PREDNISOLONE ACETATE 1% OPHTH DROPS 5ML BOTHEYE SCH ×3 (06:20→18:35)
[2021-01-15 06:29] VITALS: BP 115/85
[2021-01-15] MEDS: BLOOD SUGAR DIAGNOSTIC STRIP TEST SCH ×4 (07:06→20:48)
[2021-01-15] MEDS: INSULIN LISPRO 100 UNITS/ML SUBCUT SCH ×4 (07:12→20:51)
[2021-01-15] MEDS: SODIUM CHLORIDE 0.9% 1,000 ML IV SCH ×2 (07:55→18:46)
[2021-01-15 08:00] VITALS: BP 132/61
[2021-01-15 08:21] LABS: CHLORIDE 101 mEq/L (98-107)
[2021-01-15] MEDS: TACROLIMUS 0.5 MG CAPSULE PO SCH ×2 (09:00→18:35)
[2021-01-15] MEDS: MYCOPHENOLATE MOFETIL 250MG CAPSULE PO SCH ×2 (09:14→20:47)
[2021-01-15] MEDS: SERTRALINE HCL 50MG TABLET PO SCH ×2 (09:15→18:43)
[2021-01-15] MEDS: LOSARTAN POTASSIUM 25 MG TABLET PO SCH (09:15)
[2021-01-15] MEDS: RISPERIDONE 0.5MG TABLET PO SCH ×2 (09:16→18:43)
[2021-01-15] MEDS: AMLODIPINE 2.5MG TABLET PO SCH (09:16)
[2021-01-15] MEDS: PREDNISONE 5MG TABLET PO SCH (09:16)
[2021-01-15] MEDS ORDERED: LIDOCAINE HCL 1% 30ML VIAL (10MG/ML) ONE (09:28)
[2021-01-15] MEDS ORDERED: BUPIVACAINE HCL/PF 0.5% (5MG/ML) 10ML ONE (09:29)
[2021-01-15] MEDS ORDERED: POLYMYXIN B SULFATE 500000 UNITS/VIAL ONE ×2 (09:29→10:22)
[2021-01-15] MEDS ORDERED: BACITRACIN 15GM TUBE TOP ONE (10:21)
[2021-01-15] MEDS ORDERED: GENTAMICIN SULF 40MG/ML 2ML VIAL ONE (10:21)
[2021-01-15] MEDS ORDERED: PROPOFOL 200MG/20ML VIAL IV ONE ×2 (10:55→11:03)
[2021-01-15] MEDS ORDERED: MIDAZOLAM HCL 2 MG/2 ML VIAL ONE (10:55)
[2021-01-15] MEDS ORDERED: CEFAZOLIN SODIUM 1000MG/VIAL ONE (10:55)
[2021-01-15] MEDS ORDERED: NALOXONE HCL 0.4MG/ML VIAL IV PRN (11:15)
[2021-01-15] MEDS ORDERED: EPINEPHRINE 1:1000 1 MG/ML AMP ONE (11:42)
[2021-01-15] MEDS: HYDROMORPHONE HCL/PF 2MG/ML CPJ IV PRN (15:40)
[2021-01-15 16:00] VITALS: BP 130/43
[2021-01-15] MEDS: PIPERACILLIN/TAZOBACTAM 3.375 G in DEXTROSE 5% WATER 50 ML IV SCH (18:35)
[2021-01-15 20:00] VITALS: BP 113/32
[2021-01-15] MEDS ORDERED: INSULIN LISPRO 100 UNITS/ML SUBCUT NR (20:42)
[2021-01-15] MEDS: ATORVASTATIN CALCIUM 20MG TABLET PO SCH (20:47)
[2021-01-15] MEDS: INSULIN GLARGINE UD 100 UNITS/ML SYR SUBCUT SCH (20:48)
[2021-01-16] VITALS: BP 143/45
[2021-01-16 04:00] VITALS: BP 129/43
[2021-01-16] MEDS: SODIUM CHLORIDE 0.9% 1,000 ML IV SCH ×2 (04:00→14:36)
[2021-01-16] MEDS: PIPERACILLIN/TAZOBACTAM 3.375 G in DEXTROSE 5% WATER 50 ML IV SCH ×3 (05:47→20:59)
[2021-01-16] MEDS: HYDROMORPHONE HCL/PF 2MG/ML CPJ IV PRN ×3 (06:03→22:59)
[2021-01-16] MEDS: SODIUM CHLORIDE 0.9% INJ 3ML FLUSH IVF SCH ×3 (06:05→20:59)
[2021-01-16] MEDS: BLOOD SUGAR DIAGNOSTIC STRIP TEST SCH ×4 (06:48→20:59)
[2021-01-16] MEDS: INSULIN LISPRO 100 UNITS/ML SUBCUT SCH ×4 (06:49→20:58)
[2021-01-16 07:29] LABS: BASOPHILS % 0.8 % (0.0-2.0); CHLORIDE 101 mEq/L (98-107); EOSINOPHILS % 1.5 % (0.0-5.0); HEMATOCRIT. 27.2 % (36.0-48.0); HEMOGLOBIN. 8.7 g/dL (12.0-16.0); LYMPHOCYTES % 13.5 % (20.0-50.0); MEAN CORPUSCULAR HEMOGLOBIN 26.3 pg (28.0-32.0); MEAN CORPUSCULAR VOLUME 82.3 fL (81.0-99.0); MEAN PLATELET VOLUME 9.2 fl (7.4-10.4); MONOCYTES % 8.5 % (2.0-8.0); NEUTROPHILS % 75.7 % (40.0-76.0); PLATELET 278 x1000/uL (130-400); RED BLOOD CELL COUNT 3.31 mill/uL (4.2-5.4); RED CELL DISTRIBUTION WIDTH 16.1 % (11.6-14.6)
[2021-01-16 08:00] VITALS: BP 116/39
[2021-01-16] MEDS: MYCOPHENOLATE MOFETIL 250MG CAPSULE PO SCH ×2 (09:04→20:54)
[2021-01-16] MEDS: TACROLIMUS 0.5 MG CAPSULE PO SCH ×2 (09:04→18:00)
[2021-01-16] MEDS: PREDNISONE 5MG TABLET PO SCH (09:05)
[2021-01-16] MEDS: SERTRALINE HCL 50MG TABLET PO SCH ×2 (09:05→18:00)
[2021-01-16] MEDS: LOSARTAN POTASSIUM 25 MG TABLET PO SCH (09:05)
[2021-01-16] MEDS: RISPERIDONE 0.5MG TABLET PO SCH ×2 (09:05→18:00)
[2021-01-16] MEDS: AMLODIPINE 2.5MG TABLET PO SCH (09:37)
[2021-01-16 12:00] VITALS: BP 122/50
[2021-01-16] MEDS: PREDNISOLONE ACETATE 1% OPHTH DROPS 5ML BOTHEYE SCH ×3 (14:00→21:01)
[2021-01-16 16:00] VITALS: BP 118/53
[2021-01-16 20:00] VITALS: BP 135/54
[2021-01-16] MEDS: ATORVASTATIN CALCIUM 20MG TABLET PO SCH (20:54)
[2021-01-16] MEDS: INSULIN GLARGINE UD 100 UNITS/ML SYR SUBCUT SCH (20:58)
[2021-01-17] VITALS: BP_SYST 134; BP_SYST 142; BP_DIAS 55; BP_DIAS 67
[2021-01-17 04:00] VITALS: BP 137/55
[2021-01-17] MEDS: PREDNISOLONE ACETATE 1% OPHTH DROPS 5ML BOTHEYE SCH ×2 (05:37→14:29)
[2021-01-17] MEDS: SODIUM CHLORIDE 0.9% INJ 3ML FLUSH IVF SCH ×2 (05:37→14:29)
[2021-01-17] MEDS: PIPERACILLIN/TAZOBACTAM 3.375 G in DEXTROSE 5% WATER 50 ML IV SCH ×2 (05:37→14:29)
[2021-01-17] MEDS: BLOOD SUGAR DIAGNOSTIC STRIP TEST SCH ×2 (07:20→12:52)
[2021-01-17] MEDS: INSULIN LISPRO 100 UNITS/ML SUBCUT SCH ×2 (08:47→12:54)
[2021-01-17] MEDS: PREDNISONE 5MG TABLET PO SCH (08:49)
[2021-01-17] MEDS: TACROLIMUS 0.5 MG CAPSULE PO SCH (08:50)
[2021-01-17] MEDS: AMLODIPINE 2.5MG TABLET PO SCH (08:50)
[2021-01-17] MEDS: MYCOPHENOLATE MOFETIL 250MG CAPSULE PO SCH (08:51)
[2021-01-17] MEDS: RISPERIDONE 0.5MG TABLET PO SCH (08:51)
[2021-01-17] MEDS: LOSARTAN POTASSIUM 25 MG TABLET PO SCH (08:52)
[2021-01-17] MEDS: SERTRALINE HCL 50MG TABLET PO SCH (09:04)
[2021-01-17] MEDS: SODIUM CHLORIDE 0.9% 1,000 ML IV SCH ×2 (09:05)
[2021-01-17] MEDS: HYDROMORPHONE HCL/PF 2MG/ML CPJ IV PRN (10:04)
[2021-01-17 15:33] VITALS: BP 144/53
== END 2021-01-17 16:00 | disposition home health service (06) | DRG 475 ==
LOC: ER 06:26 → 6EST 11:21 → EDBEDREQTM 11:24 → EDBEDREQ 11:24 → EDBEDREQSVC 14:52 → ENRESERV 20:11
PROVIDERS: ADMIT Internal Medicine; ATTEND Internal Medicine
PROC: 0Y6N0Z9 Detachment at Left Foot, Partial 1st Ray, Open Approach (ICD-10-PCS; principal; 2021-01-17)
PROC: 0Y6N0ZB Detachment at Left Foot, Partial 2nd Ray, Open Approach (ICD-10-PCS; 2021-01-17)
PROC: 0Y6N0ZC Detachment at Left Foot, Partial 3rd Ray, Open Approach (ICD-10-PCS; 2021-01-17)
PROC: 0Y6N0ZD Detachment at Left Foot, Partial 4th Ray, Open Approach (ICD-10-PCS; 2021-01-17)
PROC: 0Y6N0ZF Detachment at Left Foot, Partial 5th Ray, Open Approach (ICD-10-PCS; 2021-01-17)
DX: T87.81 Dehiscence of amputation stump (principal); E11.52 Type 2 diabetes mellitus with diabetic peripheral angiopathy with gangrene; Z94.0 Kidney transplant status; N17.9 Acute kidney failure, unspecified; T86.19 Other complication of kidney transplant; I96 Gangrene, not elsewhere classified; E11.22 Type 2 diabetes mellitus with diabetic chronic kidney disease; E11.319 Type 2 diabetes mellitus with unspecified diabetic retinopathy without macular edema; Y83.5 Amputation of limb(s) as the cause of abnormal reaction of the patient, or of later complication, without mention of misadventure at the time of the procedure; E86.0 Dehydration; E78.00 Pure hypercholesterolemia, unspecified; I25.10 Atherosclerotic heart disease of native coronary artery without angina pectoris; E11.65 Type 2 diabetes mellitus with hyperglycemia; E11.21 Type 2 diabetes mellitus with diabetic nephropathy; I11.9 Hypertensive heart disease without heart failure; Y83.0 Surgical operation with transplant of whole organ as the cause of abnormal reaction of the patient, or of later complication, without mention of misadventure at the time of the procedure; Z20.822 Contact with and (suspected) exposure to COVID-19; Z90.710 Acquired absence of both cervix and uterus; Z88.8 Allergy status to other drugs, medicaments and biological substances; Z88.5 Allergy status to narcotic agent; Z79.899 Other long term (current) drug therapy; Z89.422 Acquired absence of other left toe(s); Z90.49 Acquired absence of other specified parts of digestive tract; Y92.89 Other specified places as the place of occurrence of the external cause
CPT/HCPCS: 36415; 71045; 73630; 80048; 80053; 82962; 83036; 85025; 86850; 86900; 87070; 87075; 87426; 88305; 88311; 93005; 99285; J0690; J1170; J1200; J1580; J1815; J2250; J2405; J2543; J2704; J3370; J3490; J7030; J7060; J7507; J7512; J7517

== ENCOUNTER 2022-10-05 11:24 | Emergency (ER) | payer MEDICARE, MEDICAID ==
[~2022-10-05] VITALS: Ht 152.4 cm; Wt 68.0 kg
[2022-10-05 11:33] VITALS: TEMP 98.3; O2SAT 99
[2022-10-05 13:45] LABS: BASOPHILS % 0.4 % (0.0-2.0); EOSINOPHILS % 1.3 % (0.0-5.0); HEMATOCRIT. 39.8 % (36.0-48.0); HEMOGLOBIN. 12.8 g/dL (12.0-16.0); LYMPHOCYTES % 19.1 % (20.0-50.0); MEAN CORPUSCULAR VOLUME 86.7 fL (81.0-99.0); MEAN PLATELET VOLUME 8.9 fl (7.4-10.4); MONOCYTES % 9.8 % (2.0-8.0); NEUTROPHILS % 69.4 % (40.0-76.0); PLATELET 214 x1000/uL (130-400); RED BLOOD CELL COUNT 4.58 mill/uL (4.2-5.4); RED CELL DISTRIBUTION WIDTH 15.9 % (11.6-14.6)
[2022-10-05 13:52] LABS: CHLORIDE 106 mEq/L (98-107)
[2022-10-05 14:15] VITALS: BP 121/43; PULSE 64; RESP 18
[2022-10-05] MEDS ORDERED: KETOROLAC 60MG/2ML VIAL IM ONE (14:15)
[2022-10-05] MEDS ORDERED: HYDROCODONE/ACETAMINOPHEN 5/325MG TABLET PO ONE (14:15)
[2022-10-15] MEDS ORDERED: TACR1CAP PO ×2 (10:33)
[2022-10-15] MEDS ORDERED: SITA100T11 PO (10:33)
[2022-10-15] MEDS ORDERED: SERT-112 PO (10:36)
[2022-10-15] MEDS ORDERED: RISP1TAB97 PO (10:36)
[2022-10-15] MEDS ORDERED: ALEN70TA79 PO (11:14)
[2022-10-15] MEDS ORDERED: FINE10TA PO (11:14)
[2022-10-15] MEDS ORDERED: PRAV80TA21 PO (11:14)
[2022-10-15] MEDS ORDERED: ASPI-1497 PO (11:37)
[2022-10-15] MEDS ORDERED: HYDR-4009 PO (11:37)
[2022-10-15] MEDS ORDERED: ERGO2000 PO (11:37)
[2022-10-15] MEDS ORDERED: MYCO250C PO (11:37)
[2022-10-15] MEDS ORDERED: DAPA10TA PO (11:37)
[2022-10-15] MEDS ORDERED: DOCU-150 PO (11:37)
== END 2022-10-05 15:49 | disposition home or self-care (01) ==
LOC: ER 11:24
DX: M79.671 Pain in right foot (principal); Z99.2 Dependence on renal dialysis; G89.29 Other chronic pain; Z79.899 Other long term (current) drug therapy
CPT/HCPCS: 99284; 80053; 83605; 85025; 87040; 36415; 73630; 96372; J1885

== ENCOUNTER 2022-10-15 11:39 | Inpatient (IN) | payer MEDICARE, MEDICAID ==
[2022-10-15] VITALS (17 sets, daily range): BP systolic 128–158; BP diastolic 65–97; PULSE 77–96; RESP 14–22; TEMP 97.7–99.4
[~2022-10-15] VITALS: Ht 152.4 cm; Wt 63.5 kg
[~2022-10-15 11:39] MED LIST changes: +ALEN70TA79 PO; +ASPI-1497 PO; +DAPA10TA PO; +DOCU-150 PO; +ERGO2000 PO; +FINE10TA PO; +HYDR-4009 PO; +MYCO250C PO; +PRAV80TA21 PO; +RISP1TAB97 PO; +SERT-112 PO; +SITA100T11 PO; +TACR1CAP PO
[2022-10-15] MEDS ORDERED: FENTANYL CITRATE/PF 50MCG/ML 2ML VIAL ONE (15:13)
[2022-10-15] MEDS ORDERED: LIDOCAINE HCL/PF 1% 10 MG/ML 5ML VIAL ONE (15:13)
[2022-10-15] MEDS ORDERED: HEPARIN 1000 UNITS/ML 10ML ONE (15:14)
[2022-10-15] MEDS ORDERED: IODIXANOL 320MG/ML 100 ML BOTTLE IV ONE ×2 (15:14→16:11)
[2022-10-15] MEDS ORDERED: MIDAZOLAM HCL 2 MG/2 ML VIAL ONE (15:14)
[2022-10-15] MEDS ORDERED: HYDRALAZINE 20MG/ML VIAL ONE (16:22)
[2022-10-15] MEDS ORDERED: ASPIRIN 325MG TABLET ONE (16:30)
[2022-10-15] MEDS ORDERED: ACETAMINOPHEN 325MG TABLET PO PRN (17:00)
[2022-10-15] MEDS ORDERED: ONDANSETRON HCL 4MG/2ML INJ IV PRN (17:00)
[2022-10-15] MEDS ORDERED: ATROPINE SULFATE 1MG/10ML SYR IV PRN (17:00)
[2022-10-15] MEDS ORDERED: HYDROCODONE/ACETAMINOPHEN 10/325MG TABLET PO PRN (19:00)
[2022-10-15] MEDS ORDERED: MEDICATION NOT ON FORMULARY EA (Dapagliflozin Propanediol (Farxiga) 1 TAB) PO SCH (19:00)
[2022-10-15] MEDS ORDERED: TACROLIMUS 1MG CAPSULE PO SCH ×2 (19:00→21:00)
[2022-10-15] MEDS ORDERED: LOSARTAN POTASSIUM 25 MG TABLET PO SCH (21:00)
[2022-10-15] MEDS ORDERED: NALOXONE HCL 0.4MG/ML VIAL IV PRN (21:00)
[2022-10-15] MEDS ORDERED: ATORVASTATIN CALCIUM 20MG TABLET PO SCH (21:00)
[2022-10-15] MEDS ORDERED: MEDICATION NOT ON FORMULARY EA (Pravastatin Sodium 1 TAB) PO SCH (21:00)
[2022-10-15] MEDS: MYCOPHENOLATE MOFETIL 250MG CAPSULE PO SCH (22:24)
[2022-10-15] MEDS: RISPERIDONE 1MG TABLET PO SCH (22:25)
[2022-10-16 03:47] VITALS: BP 123/56; PULSE 72; RESP 20; TEMP 99.1
[2022-10-16] MEDS ORDERED: PANTOPRAZOLE 40MG DR TABLET PO SCH (06:50)
[2022-10-16 07:09] LABS: BASOPHILS % 0.5 % (0.0-2.0); EOSINOPHILS % 0.2 % (0.0-5.0); HEMATOCRIT. 38.1 % (36.0-48.0); HEMOGLOBIN. 12.3 g/dL (12.0-16.0); LYMPHOCYTES % 13.7 % (20.0-50.0); MEAN CORPUSCULAR HEMOGLOBIN 27.6 pg (28.0-32.0); MEAN CORPUSCULAR HGB CONC 32.2 g/dL (31.0-37.0); MEAN CORPUSCULAR VOLUME 85.5 fL (81.0-99.0); MEAN PLATELET VOLUME 9.7 fl (7.4-10.4); MONOCYTES % 10.2 % (2.0-8.0); NEUTROPHILS % 75.4 % (40.0-76.0); PLATELET 207 x1000/uL (130-400); RED BLOOD CELL COUNT 4.45 mill/uL (4.2-5.4); RED CELL DISTRIBUTION WIDTH 15.3 % (11.6-14.6); WHITE BLOOD COUNT 8.5 x1000/uL (4.5-11.0)
[2022-10-16 07:15] LABS: PROTHROMBIN TIME 10.3 sec (9.6-11.0)
[2022-10-16 07:44] LABS: CHLORIDE 101 mEq/L (98-107); INDEX HEMOLYSI 1 (1-3); INDEX ICTERIC 1 (1-4); INDEX LIPEMIC 1 (1-3); POTASSIUM 4.1 mEq/L (3.5-5.1); SODIUM 131 mEq/L (136-145)
[2022-10-16 07:55] LABS: CALCIUM 8.6 mg/dL (8.5-10.1); CARBON DIOXIDE 23 mEq/L (21-32); CREATININE 0.8 mg/dL (0.6-1.3); GLUCOSE 389 mg/dL (70-105); UREA NITROGEN BLOOD 39 mg/dL (7-21)
[2022-10-16 08:00] VITALS: BP 102/66; PULSE 73; RESP 16; TEMP 98.9
[2022-10-16] MEDS: MYCOPHENOLATE MOFETIL 250MG CAPSULE PO SCH (08:43)
[2022-10-16] MEDS: RISPERIDONE 1MG TABLET PO SCH (08:44)
[2022-10-16] MEDS ORDERED: TACROLIMUS 1MG CAPSULE PO SCH (09:00)
[2022-10-16] MEDS ORDERED: ASPIRIN 325MG TABLET PO SCH (09:00)
[2022-10-16] MEDS ORDERED: ASPIRIN 81MG EC TABLET PO SCH (09:00)
[2022-10-16] MEDS ORDERED: FINERENONE PO SCH (09:00)
[2022-10-16] MEDS ORDERED: PREDNISONE 5MG TABLET PO SCH (09:00)
[2022-10-16] MEDS ORDERED: PREDNISOLONE ACETATE 1% OPHTH DROPS 5ML BOTHEYE SCH (09:00)
[2022-10-16] MEDS ORDERED: LINAGLIPTIN 5MG TABLET PO SCH (09:00)
[2022-10-16] MEDS ORDERED: MEDICATION NOT ON FORMULARY EA (Sitagliptin Phosphate (Januvia) 1 TAB) PO SCH (09:00)
[2022-10-16] MEDS ORDERED: DOCUSATE SODIUM 100MG CAPSULE PO SCH (09:00)
[2022-10-16] MEDS ORDERED: GABAPENTIN 400MG CAPSULE PO SCH (09:00)
[2022-10-16] MEDS ORDERED: SERTRALINE HCL 100MG TABLET PO SCH (09:00)
[2022-10-16 09:48] VITALS: PULSE 68; TEMP 97.9
== END 2022-10-16 10:34 | disposition home or self-care (01) | DRG 253 ==
LOC: CCL 11:39 → 3WST 18:45
PROVIDERS: ADMIT Specialist; ATTEND Specialist
PROC: 047L3ZZ Dilation of Left Femoral Artery, Percutaneous Approach (ICD-10-PCS; principal; 2022-10-15)
PROC: 047M3ZZ Dilation of Right Popliteal Artery, Percutaneous Approach (ICD-10-PCS; 2022-10-15)
PROC: 047K3ZZ Dilation of Right Femoral Artery, Percutaneous Approach (ICD-10-PCS; 2022-10-15)
DX: E11.52 Type 2 diabetes mellitus with diabetic peripheral angiopathy with gangrene (principal); D84.9 Immunodeficiency, unspecified; Z94.0 Kidney transplant status; I70.261 Atherosclerosis of native arteries of extremities with gangrene, right leg; I25.10 Atherosclerotic heart disease of native coronary artery without angina pectoris; E11.319 Type 2 diabetes mellitus with unspecified diabetic retinopathy without macular edema; E78.5 Hyperlipidemia, unspecified; I10 Essential (primary) hypertension; Z79.624 Long term (current) use of inhibitors of nucleotide synthesis; Z79.82 Long term (current) use of aspirin; Z79.84 Long term (current) use of oral hypoglycemic drugs; Z79.899 Other long term (current) drug therapy; Z91.52 Personal history of nonsuicidal self-harm; Z88.5 Allergy status to narcotic agent
CPT/HCPCS: 36415; 80048; 82962; 85025; J0360; J1644; J2250; J3010; J3490; J7507; J7512; J7517; Q9967